=== PATIENT | female | born 1940 | race Caucasian/White ===

== ENCOUNTER 2020-12-13 11:12 | Outpatient (CLI) | payer MEDICARE, MEDICAID ==
[2020-12-13 20:27] LABS: SARS-CoV-2 PCR by NAA Not Detected (NotDetected)
== END 2020-12-13 11:13 | disposition home or self-care (01) ==
LOC: CSHLAB 11:12
PROVIDERS: ATTEND Specialist
DX: Z20.822 Contact with and (suspected) exposure to COVID-19 (principal)
CPT/HCPCS: 87635; U0003; U0005